=== PATIENT | female | born 1960 | race Caucasian/White ===

== ENCOUNTER 2022-09-29 12:51 | Emergency (ER) | payer OTHER ==
[~2022-09-29] VITALS: Ht 167.6 cm; Wt 98.4 kg
--- NOTE | 2022-09-29 13:10 | NUR ---
BIBS C/O SYNCOPAL EPISODE AFTER GIVING HER PATIENT A SHOWER THIS MORNING. AMBULATORY, PLACED IN BED, BREATHING UNLABORED SATURATING AT 98%RA, BP- 135/70.
--- NOTE | 2022-09-29 13:46 | NUR ---
BLOOD DRAWN AND SENT TO LAB
--- NOTE | 2022-09-29 13:52 | NUR ---
X-RAY TECH AT BEDSIDE
[2022-09-29 14:05] LABS: BASOPHILS % (AUTO) 0.4 % (0.0-2.0); EOSINOPHILS % (AUTO) 0.9 % (0.0-6.0); HEMATOCRIT 38 % (33-45); HEMOGLOBIN 12.4 g/dL (11.5-14.8); LYMPHOCYTES # (AUTO) 1.6 K/uL (0.8-4.8); LYMPHOCYTES % (AUTO) 24.6 % (20.0-44.0); MEAN CORPUSCULAR HGB CONC 33 g/dl (31.0-36.0); MEAN CORPUSCULAR VOLUME 83 fL (82-100); MONOCYTES # (AUTO) 0.4 K/uL (0.1-1.30); MONOCYTES % (AUTO) 5.5 % (2.0-12.0); NEUTROPHILS # (AUTO) 4.6 K/uL (1.8-8.9); NEUTROPHILS % (AUTO) 68.6 % (43.0-81.0); PLATELET COUNT (AUTO) 179 K/uL (150-450); RED BLOOD CELL COUNT(AUTO) 4.58 MIL/uL (4.0-5.2); WHITE BLOOD COUNT (AUTO) 6.7 K/uL (4.3-11.0)
[2022-09-29 14:13] LABS: CALCIUM, SERUM 9.1 mg/dL (8.5-10.1); CARBON DIOXIDE 32 mmol/L (21-32); CHLORIDE 101 mmol/L (98-107); CREATININE 0.7 mg/dL (0.6-1.3); GLUCOSE 102 mg/dL (74-106); POTASSIUM 3.7 mmol/L (3.5-5.1); SODIUM SERUM 137 mmol/L (136-145); UREA NITROGEN, BLOOD 19 mg/dL (7-18)
[2022-09-29 14:25] LABS: ALANINE AMINOTRANSFERASE 21 U/L (12-78); ALBUMIN 3.9 g/dL (3.4-5.0); ALKALINE PHOSPHATASE 68 U/L (46-116); ASPARTATE AMINOTRANSFERASE 12 U/L (15-37); BILIRUBIN,DIRECT 0.1 mg/dL (0.0-0.2); BILIRUBIN,TOTAL 0.3 mg/dL (0.2-1.0); TOTAL PROTEIN, SERUM 7.7 g/dL (6.4-8.2)
[2022-09-29] MEDS ORDERED: IV NS 0.9% 1,000 ML BAG IV ONE (15:00)
--- NOTE | 2022-09-29 18:10 | NUR ---
IV removed. Catheter intact and site benign. Pressure and 4x4 applied to site. No bleeding noted.Patient discharged to home in stable condition. Written and verbal after care instructions given. Patient verbalizes understanding of instruction.
[2022-09-29 18:22] VITALS: BP 135/85
== END 2022-09-29 18:10 | disposition home or self-care (01) ==
LOC: ER 13:06
DX: R42 Dizziness and giddiness (principal); B34.9 Viral infection, unspecified; R68.83 Chills (without fever); Z88.0 Allergy status to penicillin
CPT/HCPCS: 99285; 96360; 71045; 93005; 85025; 80048; 80076; 36415; 84484 ×2; 83880; 82962; J7030